=== PATIENT | male | born 1955 | race Caucasian/White ===

== ENCOUNTER → 2017-04-02 | Outpatient (CLI) | payer MEDICAID ==
[~2017-04-02] MED LIST: GABA300C10 PO
== END | disposition home or self-care (01) ==
LOC: STAR 13:35
PROVIDERS: ATTEND Surgery
DX: Z01.818 Encounter for other preprocedural examination (principal); K40.90 Unilateral inguinal hernia, without obstruction or gangrene, not specified as recurrent
CPT/HCPCS: 93005

== ENCOUNTER 2017-04-10 12:30 | Day surgery (SDC) | payer MEDICAID ==
[~2017-04-10] VITALS: Ht 180.3 cm; Wt 84.9 kg
[~2017-04-10 12:30] MED LIST changes: +BUPIVACAINE/PF 0.5% ONE
[2017-04-10 13:03] VITALS: BP 151/96
[2017-04-10] MEDS ORDERED: LACTATED RINGERS 1,000 ML IV SCH ×2 (13:05→17:00)
[2017-04-10] MEDS ORDERED: MIDAZOLAM 1 MG/ML, 2ML ONE (13:36)
[2017-04-10] MEDS ORDERED: FENTANYL PF 250 MCG/5ML ONE (13:36)
[2017-04-10] MEDS ORDERED: METH750T2 PO (13:46)
[2017-04-10] MEDS ORDERED: LIDOCAINE-MPF 2% ,5ML ONE (14:24)
[2017-04-10] MEDS ORDERED: HYDROmorphone 2 MG/ML, 1ML IV PRN (14:30)
[2017-04-10] MEDS ORDERED: ONDANSETRON 2MG/ML, 2ML IVPush PRN ×2 (14:30→16:00)
[2017-04-10] MEDS ORDERED: FENTANYL PF 100 MCG/2ML IV PRN (14:30)
[2017-04-10] MEDS ORDERED: OXYcodone 5 MG/5 ML ORAL.SOL UDC PO PRN (14:30)
[2017-04-10] MEDS ORDERED: CEFAZOLIN 1,000 MG ONE (14:37)
[2017-04-10] MEDS ORDERED: PROPOFOL 10 MG/ML, 20ML ONE (14:37)
[2017-04-10] MEDS ORDERED: DEXAMETHASONE 4 MG/ML, 1ML ONE ×2 (14:37)
[2017-04-10] MEDS ORDERED: ONDANSETRON 2MG/ML, 2ML ONE ×2 (14:37)
[2017-04-10] MEDS ORDERED: EPHEDRINE 50 MG/ML, 1ML ONE (14:37)
[2017-04-10] MEDS ORDERED: ROCURONIUM 10 MG/ML,10ML ONE (14:37)
[2017-04-10] MEDS ORDERED: SUCCINYLCHOLINE 20 MG/ML, 10ML ONE (14:37)
[2017-04-10] MEDS ORDERED: morphine SULFATE 10 MG/ML, 1ML IVPush PRN (16:00)
== END 2017-04-10 17:45 | disposition home or self-care (01) ==
LOC: OUT 12:30
PROVIDERS: ATTEND Surgery
DX: K40.90 Unilateral inguinal hernia, without obstruction or gangrene, not specified as recurrent (principal); Z88.6 Allergy status to analgesic agent
CPT/HCPCS: 49505; J0330; J0690; J1100; J2250; J2405; J2704; J3010; J3490; J7120; C1781

== ENCOUNTER 2017-07-12 08:51 | Inpatient (IN) | payer MEDICAID ==
[~2017-07-12] VITALS: Ht 180.3 cm; Wt 80.7 kg
[~2017-07-12 08:51] MED LIST changes: -BUPIVACAINE/PF 0.5% ONE; +METH750T2 PO
[2017-07-12] MEDS ORDERED: SODIUM CHLORIDE FLUSH 10ML SYR IVF ONE (09:30)
[2017-07-12 09:48] LABS: BASOPHILS % (AUTO) 0 % (0-1); EOSINOPHILS # (AUTO) 0.24 x10^3/uL (0-0.4); EOSINOPHILS % (AUTO) 2 % (1-7); LYMPHOCYTES # (AUTO) 0.83 x10^3/uL (1-3.4); LYMPHOCYTES % (AUTO) 6 % (22-44); MD NO; MEAN CORPUSCULAR HEMOGLOBIN 32.2 pg (27.5-34.5); MEAN CORPUSCULAR HGB CONC 34.4 g/dL (33.2-36.2); MEAN CORPUSCULAR VOLUME 93.3 fL (81-97); MONOCYTES # (AUTO) 0.54 x10^3/uL (0.2-0.8); MONOCYTES % (AUTO) 4 % (2-9); NEUTROPHILS # (AUTO) 12.02 x10^3/uL (1.8-6.8); NEUTROPHILS % (AUTO) 88 % (42-75); PLATELET COUNT 214 x10^3/uL (130-400); RED BLOOD COUNT 5.01 x10^6/uL (4.38-5.82); RED CELL DISTRIBUTION WIDTH 13.7 % (9.4-14.8)
[2017-07-12 09:55] LABS: ALANINE AMINOTRANSFERASE 16 U/L (12-78); ALBUMIN 3.3 g/dL (3.4-5.0); ANION GAP 8 mmol/L (5-15); CALCIUM 8.1 mg/dL (8.5-10.1); CHLORIDE 105 mmol/L (98-107)
[2017-07-12 09:59] LABS: ALKALINE PHOSPHATASE 53 U/L (45-117); BILIRUBIN,TOTAL 1.3 mg/dL (0.2-1.0); TOTAL PROTEIN 7.4 g/dL (6.4-8.2); TROPONIN I 0.085 ng/mL (0.000-0.045)
[2017-07-12] MEDS ORDERED: CEFTRIAXONE PMX 1GM/50ML 50 ML IVPB ONE (10:30)
[2017-07-12] MEDS ORDERED: OMNIPAQUE 350 MG/ML, 100ML BOTTLE ONE (10:38)
[2017-07-12] MEDS ORDERED: SODIUM CHLORIDE 0.9% 1,000 ML IV SCH ×2 (11:00→12:00)
[2017-07-12] MEDS ORDERED: NITROGLYCERIN 0.4 MG BOTTLE (25 TABS) SL PRN (11:00)
[2017-07-12] MEDS ORDERED: ASPIRIN 81 MG TABLET CHEW PO ONE (11:00)
[2017-07-12] MEDS ORDERED: ONDANSETRON 2MG/ML, 2ML IVPush PRN (11:00)
[2017-07-12] MEDS ORDERED: IPRATROPIUM 0.5 MG/2.5 ML INHA HHN SCH (11:00)
[2017-07-12] MEDS: SODIUM CHLORIDE 0.9% 1,000 ML IV SCH ×2 (11:00→15:00)
[2017-07-12] MEDS ORDERED: ASPIRIN 81 MG TABLET CHEW ONE (11:16)
[2017-07-12] MEDS ORDERED: CEFTRIAXONE PMX 1GM/50ML 50 ML ONE (11:16)
[2017-07-12] MEDS: CEFTRIAXONE PMX 1GM/50ML 50 ML IV SCH (11:20)
[2017-07-12 11:50] VITALS: BP 151/89
[2017-07-12 12:30] VITALS: BP 142/85
[2017-07-12] MEDS ORDERED: ALBUTEROL SULFATE 2.5 MG/3 ML ONE (12:36)
[2017-07-12] MEDS: ALBUTEROL SULFATE 2.5 MG/3 ML NPPB SCH ×2 (12:44→20:00)
[2017-07-12] MEDS: SODIUM CHLORIDE 0.9% 500 ML IV SCH ×6 (13:00→23:00)
[2017-07-12] MEDS: AZITHROMYCIN 500 MG in SODIUM CHLORIDE 0.9% 250 ML IV SCH (13:16)
[2017-07-12] MEDS: ENOXAPARIN 40 MG/0.4 ML SQ SCH (13:16)
[2017-07-12] MEDS: IBUPROFEN 200 MG TABLET PO PRN (16:59)
[2017-07-12 19:32] LABS: TROPONIN I 0.036 ng/mL (0.000-0.045)
[2017-07-12] MEDS: ATORVASTATIN 80 MG TABLET PO SCH (20:41)
[2017-07-12] MEDS: DIPHENHYDRAMINE 25 MG CAPSULE PO PRN (20:53)
[2017-07-12 21:01] VITALS: BP 153/86
[2017-07-13] MEDS: SODIUM CHLORIDE 0.9% 500 ML IV SCH ×2 (00:23→01:00)
[2017-07-13 00:43] VITALS: BP 139/76
[2017-07-13] MEDS: GUAIFENESIN/DM 200-20MG, 10ML UDC PO PRN ×2 (02:00→22:26)
[2017-07-13] MEDS: IBUPROFEN 200 MG TABLET PO PRN ×4 (02:01→22:27)
[2017-07-13] MEDS: ALBUTEROL SULFATE 2.5 MG/3 ML NPPB SCH ×2 (02:05→13:54)
[2017-07-13] MEDS: SODIUM CHLORIDE 0.9% 1,000 ML IV SCH ×2 (04:22→17:13)
[2017-07-13 05:37] LABS: BASOPHILS # (AUTO) 0.02 x10^3/uL (0-0.1); BASOPHILS % (AUTO) 0 % (0-1); EOSINOPHILS # (AUTO) 0.25 x10^3/uL (0-0.4); EOSINOPHILS % (AUTO) 2 % (1-7); LYMPHOCYTES # (AUTO) 0.71 x10^3/uL (1-3.4); LYMPHOCYTES % (AUTO) 6 % (22-44); MD NO; MEAN CORPUSCULAR HEMOGLOBIN 31.7 pg (27.5-34.5); MEAN CORPUSCULAR HGB CONC 33.6 g/dL (33.2-36.2); MEAN CORPUSCULAR VOLUME 94.3 fL (81-97); MEAN PLATELET VOLUME 9.3 fL (7.4-10.4); MONOCYTES # (AUTO) 0.84 x10^3/uL (0.2-0.8); MONOCYTES % (AUTO) 7 % (2-9); NEUTROPHILS # (AUTO) 9.81 x10^3/uL (1.8-6.8); NEUTROPHILS % (AUTO) 84 % (42-75); PLATELET COUNT 202 x10^3/uL (130-400); RED BLOOD COUNT 4.37 x10^6/uL (4.38-5.82); RED CELL DISTRIBUTION WIDTH 13.8 % (9.4-14.8)
[2017-07-13 05:41] LABS: ALBUMIN 2.6 g/dL (3.4-5.0); ANION GAP 7 mmol/L (5-15); CALCIUM 8.2 mg/dL (8.5-10.1); CHLORIDE 106 mmol/L (98-107)
[2017-07-13 05:45] LABS: ALANINE AMINOTRANSFERASE 11 U/L (12-78); ALKALINE PHOSPHATASE 39 U/L (45-117); BILIRUBIN,TOTAL 1.2 mg/dL (0.2-1.0); TOTAL PROTEIN 6.2 g/dL (6.4-8.2)
[2017-07-13] MEDS: ASPIRIN 81 MG TABLET EC PO SCH (06:29)
[2017-07-13 06:32] VITALS: BP 138/73
[2017-07-13] MEDS: CEFTRIAXONE PMX 1GM/50ML 50 ML IV SCH (11:01)
[2017-07-13] MEDS: AZITHROMYCIN 500 MG in SODIUM CHLORIDE 0.9% 250 ML IV SCH (11:58)
[2017-07-13] MEDS: ENOXAPARIN 40 MG/0.4 ML SQ SCH (11:59)
[2017-07-13 13:48] VITALS: BP 180/98
[2017-07-13] MEDS: hydrALAzine 20 MG/ML, 1ML IV PRN ×2 (14:03→19:38)
[2017-07-13] MEDS ORDERED: ALBUTEROL SULFATE 2.5 MG/3 ML NPPB PRN (15:00)
[2017-07-13 18:52] VITALS: BP 179/109
[2017-07-13] MEDS: ALBUTEROL/IPRATROPIUM 2.5MG/0.5MG, 3 ML NPPB SCH (18:56)
[2017-07-13] MEDS ORDERED: LORazepam 2 MG/ML, 1ML IVPush PRN (19:30)
[2017-07-13] MEDS: ATORVASTATIN 80 MG TABLET PO SCH (22:26)
[2017-07-13] MEDS: DIPHENHYDRAMINE 25 MG CAPSULE PO PRN (22:27)
[2017-07-14] MEDS: SODIUM CHLORIDE 0.9% 1,000 ML IV SCH ×2 (03:09→15:15)
[2017-07-14 03:59] VITALS: BP 148/78
[2017-07-14 05:26] LABS: BASOPHILS # (AUTO) 0.02 x10^3/uL (0-0.1); BASOPHILS % (AUTO) 0 % (0-1); EOSINOPHILS % (AUTO) 5 % (1-7); LYMPHOCYTES # (AUTO) 1.23 x10^3/uL (1-3.4); LYMPHOCYTES % (AUTO) 11 % (22-44); MD NO; MEAN CORPUSCULAR HEMOGLOBIN 31.1 pg (27.5-34.5); MEAN CORPUSCULAR HGB CONC 33.1 g/dL (33.2-36.2); MEAN CORPUSCULAR VOLUME 93.8 fL (81-97); MEAN PLATELET VOLUME 9.4 fL (7.4-10.4); MONOCYTES # (AUTO) 0.86 x10^3/uL (0.2-0.8); MONOCYTES % (AUTO) 8 % (2-9); NEUTROPHILS # (AUTO) 8.32 x10^3/uL (1.8-6.8); NEUTROPHILS % (AUTO) 75 % (42-75); PLATELET COUNT 239 x10^3/uL (130-400); RED BLOOD COUNT 4.56 x10^6/uL (4.38-5.82); RED CELL DISTRIBUTION WIDTH 13.3 % (9.4-14.8)
[2017-07-14 05:33] LABS: ALBUMIN 2.6 g/dL (3.4-5.0); ANION GAP 8 mmol/L (5-15); CHLORIDE 107 mmol/L (98-107)
[2017-07-14 05:36] LABS: ALANINE AMINOTRANSFERASE 13 U/L (12-78); ALKALINE PHOSPHATASE 43 U/L (45-117); BILIRUBIN,TOTAL 1.2 mg/dL (0.2-1.0); CREATININE 0.68 mg/dL (0.7-1.3); TOTAL PROTEIN 6.4 g/dL (6.4-8.2)
[2017-07-14] MEDS: ASPIRIN 81 MG TABLET EC PO SCH (06:48)
[2017-07-14] MEDS: IBUPROFEN 200 MG TABLET PO PRN (06:48)
[2017-07-14 07:00] VITALS: BP 163/92
[2017-07-14] MEDS: ALBUTEROL/IPRATROPIUM 2.5MG/0.5MG, 3 ML NPPB SCH ×4 (07:26→20:11)
[2017-07-14] MEDS: GUAIFENESIN/DM 200-20MG, 10ML UDC PO PRN ×2 (08:54→21:08)
[2017-07-14] MEDS: AMLODIPINE 5 MG TABLET PO SCH (08:54)
[2017-07-14] MEDS: CEFTRIAXONE PMX 1GM/50ML 50 ML IV SCH (10:57)
[2017-07-14 12:03] VITALS: BP 160/72
[2017-07-14] MEDS: AZITHROMYCIN 500 MG in SODIUM CHLORIDE 0.9% 250 ML IV SCH (12:15)
[2017-07-14] MEDS: ENOXAPARIN 40 MG/0.4 ML SQ SCH (12:15)
[2017-07-14] MEDS ORDERED: LORazepam 0.5MG TABLET PO PRN (14:30)
[2017-07-14 18:30] VITALS: BP 149/77
[2017-07-14 19:18] VITALS: BP 129/64
[2017-07-14] MEDS: DIPHENHYDRAMINE 25 MG CAPSULE PO PRN (21:08)
[2017-07-14] MEDS: ATORVASTATIN 80 MG TABLET PO SCH (21:08)
[2017-07-15 00:15] VITALS: BP 127/65
[2017-07-15] MEDS: SODIUM CHLORIDE 0.9% 1,000 ML IV SCH (01:30)
[2017-07-15] MEDS: IBUPROFEN 200 MG TABLET PO PRN ×2 (04:50→21:27)
[2017-07-15] MEDS: ASPIRIN 81 MG TABLET EC PO SCH (04:51)
[2017-07-15] MEDS: ALBUTEROL/IPRATROPIUM 2.5MG/0.5MG, 3 ML NPPB SCH (07:00)
[2017-07-15 07:06] VITALS: BP 142/78
[2017-07-15 07:31] LABS: BASOPHILS # (AUTO) 0.03 x10^3/uL (0-0.1); BASOPHILS % (AUTO) 0 % (0-1); EOSINOPHILS # (AUTO) 0.89 x10^3/uL (0-0.4); EOSINOPHILS % (AUTO) 10 % (1-7); LYMPHOCYTES # (AUTO) 0.98 x10^3/uL (1-3.4); LYMPHOCYTES % (AUTO) 11 % (22-44); MD NO; MEAN CORPUSCULAR HEMOGLOBIN 31.1 pg (27.5-34.5); MEAN CORPUSCULAR HGB CONC 33.6 g/dL (33.2-36.2); MEAN CORPUSCULAR VOLUME 92.5 fL (81-97); MEAN PLATELET VOLUME 8.6 fL (7.4-10.4); MONOCYTES # (AUTO) 0.86 x10^3/uL (0.2-0.8); MONOCYTES % (AUTO) 10 % (2-9); NEUTROPHILS % (AUTO) 69 % (42-75); PLATELET COUNT 269 x10^3/uL (130-400); RED BLOOD COUNT 4.24 x10^6/uL (4.38-5.82); RED CELL DISTRIBUTION WIDTH 13.3 % (9.4-14.8)
[2017-07-15 07:40] LABS: ALANINE AMINOTRANSFERASE 13 U/L (12-78); ALBUMIN 2.4 g/dL (3.4-5.0); ANION GAP 6 mmol/L (5-15); CALCIUM 7.8 mg/dL (8.5-10.1); CHLORIDE 106 mmol/L (98-107); CREATININE 0.61 mg/dL (0.7-1.3)
[2017-07-15 07:43] LABS: ALKALINE PHOSPHATASE 40 U/L (45-117); BILIRUBIN,TOTAL 0.5 mg/dL (0.2-1.0)
[2017-07-15] MEDS: LISINOPRIL 5 MG TABLET PO SCH (08:10)
[2017-07-15] MEDS: AMLODIPINE 5 MG TABLET PO SCH (08:10)
[2017-07-15] MEDS: THIAMINE 100MG TABLET PO SCH (08:10)
[2017-07-15] MEDS: FOLIC ACID 1 MG TABLET PO SCH (08:10)
[2017-07-15] MEDS: OMEPRAZOLE 20 MG CAPSULE.DR PO SCH (08:10)
[2017-07-15 10:35] VITALS: BP 95/64
[2017-07-15] MEDS: CEFTRIAXONE PMX 1GM/50ML 50 ML IV SCH (11:54)
[2017-07-15 12:42] VITALS: BP 113/71
[2017-07-15] MEDS: AZITHROMYCIN 500 MG in SODIUM CHLORIDE 0.9% 250 ML IV SCH (12:51)
[2017-07-15] MEDS: ENOXAPARIN 40 MG/0.4 ML SQ SCH (12:55)
[2017-07-15 19:07] VITALS: BP 151/82
[2017-07-15] MEDS: ATORVASTATIN 80 MG TABLET PO SCH (21:27)
[2017-07-15] MEDS: DIPHENHYDRAMINE 25 MG CAPSULE PO PRN (21:27)
[2017-07-16] MEDS: ASPIRIN 81 MG TABLET EC PO SCH (05:24)
[2017-07-16 05:26] VITALS: BP 181/95
[2017-07-16 06:18] LABS: BASOPHILS # (AUTO) 0.02 x10^3/uL (0-0.1); BASOPHILS % (AUTO) 0 % (0-1); EOSINOPHILS # (AUTO) 1.38 x10^3/uL (0-0.4); EOSINOPHILS % (AUTO) 16 % (1-7); LYMPHOCYTES # (AUTO) 1.13 x10^3/uL (1-3.4); LYMPHOCYTES % (AUTO) 14 % (22-44); MD NO; MEAN CORPUSCULAR HGB CONC 33.2 g/dL (33.2-36.2); MEAN CORPUSCULAR VOLUME 93.4 fL (81-97); MEAN PLATELET VOLUME 9.1 fL (7.4-10.4); MONOCYTES # (AUTO) 0.77 x10^3/uL (0.2-0.8); MONOCYTES % (AUTO) 9 % (2-9); NEUTROPHILS % (AUTO) 61 % (42-75); PLATELET COUNT 279 x10^3/uL (130-400); RED BLOOD COUNT 4.49 x10^6/uL (4.38-5.82); RED CELL DISTRIBUTION WIDTH 13.4 % (9.4-14.8)
[2017-07-16 06:27] LABS: CHLORIDE 107 mmol/L (98-107)
[2017-07-16 06:32] LABS: ALANINE AMINOTRANSFERASE 15 U/L (12-78); ALBUMIN 2.7 g/dL (3.4-5.0); ALKALINE PHOSPHATASE 45 U/L (45-117); ANION GAP 6 mmol/L (5-15); BILIRUBIN,TOTAL 0.4 mg/dL (0.2-1.0); CALCIUM 8.5 mg/dL (8.5-10.1); CREATININE 0.65 mg/dL (0.7-1.3); TOTAL PROTEIN 6.4 g/dL (6.4-8.2)
[2017-07-16] MEDS: OMEPRAZOLE 20 MG CAPSULE.DR PO SCH (08:50)
[2017-07-16] MEDS: FOLIC ACID 1 MG TABLET PO SCH (08:51)
[2017-07-16] MEDS: LISINOPRIL 5 MG TABLET PO SCH (08:51)
[2017-07-16] MEDS: AMLODIPINE 5 MG TABLET PO SCH (08:51)
[2017-07-16] MEDS: THIAMINE 100MG TABLET PO SCH (08:51)
[2017-07-16] MEDS: CEFTRIAXONE PMX 1GM/50ML 50 ML IV SCH (11:20)
[2017-07-16 11:26] VITALS: BP 123/74
[2017-07-16] MEDS: ENOXAPARIN 40 MG/0.4 ML SQ SCH (12:12)
[2017-07-16] MEDS: AZITHROMYCIN 500 MG in SODIUM CHLORIDE 0.9% 250 ML IV SCH (12:12)
[2017-07-16 12:37] LABS: CLOSTRIDIUM DIFFICILE ANTIGEN NEGATIVE; CLOSTRIDIUM DIFFICILE TOXIN NEGATIVE (Negative)
[2017-07-16 14:00] VITALS: BP 126/75
[2017-07-16 20:35] VITALS: BP 136/81
[2017-07-16] MEDS: DIPHENHYDRAMINE 25 MG CAPSULE PO PRN (21:23)
[2017-07-16] MEDS: ATORVASTATIN 80 MG TABLET PO SCH (21:23)
[2017-07-16] MEDS: IBUPROFEN 200 MG TABLET PO PRN (21:24)
[2017-07-17 03:57] VITALS: BP 127/76
[2017-07-17] MEDS: ASPIRIN 81 MG TABLET EC PO SCH (05:10)
[2017-07-17 08:30] VITALS: BP 130/77
[2017-07-17] MEDS: FOLIC ACID 1 MG TABLET PO SCH (08:33)
[2017-07-17] MEDS: OMEPRAZOLE 20 MG CAPSULE.DR PO SCH (08:33)
[2017-07-17] MEDS: LISINOPRIL 5 MG TABLET PO SCH (08:33)
[2017-07-17] MEDS: THIAMINE 100MG TABLET PO SCH (08:34)
[2017-07-17] MEDS: AMLODIPINE 5 MG TABLET PO SCH (08:38)
[2017-07-17] MEDS: ENOXAPARIN 40 MG/0.4 ML SQ SCH (13:01)
[2017-07-17] MEDS: CEFTRIAXONE PMX 1GM/50ML 50 ML IV SCH (13:30)
[2017-07-17] MEDS: AZITHROMYCIN 500 MG in SODIUM CHLORIDE 0.9% 250 ML IV SCH (14:10)
[2017-07-17 15:13] VITALS: BP 106/66
[2017-07-17 19:42] VITALS: BP 117/69
[2017-07-17] MEDS: ATORVASTATIN 80 MG TABLET PO SCH (21:49)
[2017-07-17] MEDS: DIPHENHYDRAMINE 25 MG CAPSULE PO PRN (21:49)
[2017-07-17] MEDS: IBUPROFEN 200 MG TABLET PO PRN (21:50)
[2017-07-18 01:07] VITALS: BP 101/59
[2017-07-18] MEDS: ASPIRIN 81 MG TABLET EC PO SCH (06:15)
[2017-07-18 09:56] VITALS: BP 107/69
[2017-07-18] MEDS: THIAMINE 100MG TABLET PO SCH (09:59)
[2017-07-18] MEDS: LISINOPRIL 5 MG TABLET PO SCH (09:59)
[2017-07-18] MEDS: AMLODIPINE 5 MG TABLET PO SCH (09:59)
[2017-07-18] MEDS: OMEPRAZOLE 20 MG CAPSULE.DR PO SCH (09:59)
[2017-07-18] MEDS: FOLIC ACID 1 MG TABLET PO SCH (10:00)
[2017-07-18] MEDS ORDERED: PNEUMOCOCCAL 23 VACCINE IM-VACC ONE (10:30)
[2017-07-18] MEDS: ENOXAPARIN 40 MG/0.4 ML SQ SCH (12:00)
[2017-07-18] MEDS: CEFTRIAXONE PMX 1GM/50ML 50 ML IV SCH (15:00)
[2017-07-18] MEDS: AZITHROMYCIN 500 MG in SODIUM CHLORIDE 0.9% 250 ML IV SCH (16:00)
[2017-07-18 16:30] VITALS: BP 124/74
[2017-07-18 20:00] VITALS: BP 112/66
[2017-07-18] MEDS ORDERED: IBUPROFEN 600 MG TABLET ONE (23:05)
[2017-07-18] MEDS: ATORVASTATIN 80 MG TABLET PO SCH (23:10)
[2017-07-18] MEDS: DIPHENHYDRAMINE 25 MG CAPSULE PO PRN (23:10)
[2017-07-19 02:00] VITALS: BP 125/75
[2017-07-19 05:11] LABS: MEAN CORPUSCULAR HGB CONC 33.4 g/dL (33.2-36.2); MEAN CORPUSCULAR VOLUME 92.8 fL (81-97); MEAN PLATELET VOLUME 8.9 fL (7.4-10.4); PLATELET COUNT 374 x10^3/uL (130-400); RED BLOOD COUNT 4.44 x10^6/uL (4.38-5.82); RED CELL DISTRIBUTION WIDTH 13.2 % (9.4-14.8)
[2017-07-19 05:22] LABS: ALANINE AMINOTRANSFERASE 20 U/L (12-78); ALBUMIN 2.8 g/dL (3.4-5.0); ANION GAP 5 mmol/L (5-15); CALCIUM 8.3 mg/dL (8.5-10.1); CHLORIDE 106 mmol/L (98-107); CREATININE 0.83 mg/dL (0.7-1.3)
[2017-07-19 05:24] LABS: ALKALINE PHOSPHATASE 65 U/L (45-117); BILIRUBIN,TOTAL 0.3 mg/dL (0.2-1.0); TOTAL PROTEIN 6.7 g/dL (6.4-8.2)
[2017-07-19 05:45] LABS: BASOPHILS # (AUTO) 0.08 x10^3/uL (0-0.1); BASOPHILS % (AUTO) 1 % (0-1); EOSINOPHILS # (AUTO) 2.75 x10^3/uL (0-0.4); EOSINOPHILS % (AUTO) 26 % (1-7); LYMPHOCYTES # (AUTO) 1.67 x10^3/uL (1-3.4); LYMPHOCYTES % (AUTO) 16 % (22-44); MD SCAN; MONOCYTES % (AUTO) 8 % (2-9); NEUTROPHILS # (AUTO) 5.46 x10^3/uL (1.8-6.8); NEUTROPHILS % (AUTO) 51 % (42-75)
[2017-07-19] MEDS: ASPIRIN 81 MG TABLET EC PO SCH (06:50)
[2017-07-19] MEDS: OMEPRAZOLE 20 MG CAPSULE.DR PO SCH (08:44)
[2017-07-19] MEDS: FOLIC ACID 1 MG TABLET PO SCH (08:45)
[2017-07-19] MEDS: LISINOPRIL 5 MG TABLET PO SCH (08:45)
[2017-07-19] MEDS: THIAMINE 100MG TABLET PO SCH (08:45)
[2017-07-19 09:00] VITALS: BP 138/79
[2017-07-19] MEDS ORDERED: AMLODIPINE 5 MG TABLET PO SCH (09:00)
[2017-07-19] MEDS ORDERED: ATOR-2 PO (10:16)
[2017-07-19] MEDS ORDERED: LISI5TAB7 PO (10:16)
[2017-07-19] MEDS ORDERED: CEFD300C37 PO (10:16)
[2017-07-19] MEDS ORDERED: ASPI-621 PO (10:16)
[2017-07-19] MEDS ORDERED: AMLO5TAB2 PO (10:16)
[2017-07-19] MEDS: CEFTRIAXONE PMX 1GM/50ML 50 ML IV SCH (11:23)
[2017-07-19] MEDS: AZITHROMYCIN 500 MG in SODIUM CHLORIDE 0.9% 250 ML IV SCH (12:00)
[2017-07-19] MEDS: ENOXAPARIN 40 MG/0.4 ML SQ SCH (12:00)
== END 2017-07-19 12:35 | disposition home or self-care (01) | DRG 871 ==
LOC: ED 10:10 → EDIP 10:30 → 4EST 11:39
PROVIDERS: ADMIT Hospitalist; ATTEND Hospitalist
DX: A41.9 Sepsis, unspecified organism (principal); J15.9 Unspecified bacterial pneumonia; J96.01 Acute respiratory failure with hypoxia; J90 Pleural effusion, not elsewhere classified; E44.0 Moderate protein-calorie malnutrition; E87.1 Hypo-osmolality and hyponatremia; E86.1 Hypovolemia; I10 Essential (primary) hypertension; I87.2 Venous insufficiency (chronic) (peripheral); Z66 Do not resuscitate; Z82.49 Family history of ischemic heart disease and other diseases of the circulatory system; Z86.718 Personal history of other venous thrombosis and embolism; Z88.6 Allergy status to analgesic agent
CPT/HCPCS: 36415; 71045; 71275; 80053; 83605; 83880; 84484; 85025; 85379; 87040; 87324; 90732; 93005; 93306; 94640; 96374; J0456; J0696; J1650; J7613; J7620; Q9967; J0360; J7030; J7040; J7050; Q0163